=== PATIENT | male | born 2005 | race Caucasian/White ===

== ENCOUNTER 2023-04-19 21:24 | Emergency (ER) | payer OTHER ==
[~2023-04-19] VITALS: Ht 175.3 cm; Wt 56.7 kg
[2023-04-19 21:44] LABS: BASOPHILS 0.4 % (0-2); EOSINOPHILS 1.2 % (0-6); HEMATOCRIT 42.2 % (35.0-50.0); HEMOGLOBIN 14.5 g/dL (12.0-18.0); LYMPHOCYTES 22.3 % (24-44); MCH 32.5 (27-36); MCHC 34.3 g/dl (30-36); MCV 94.7 fl (81-99); MONOCYTES 6.7 % (0-12); NEUTROPHILS 69.4 % (39-80); PLATELET COUNT 303 K/uL (140-440); RBC 4.46 M/ul (4.3-5.7); RDW 13.4 (10.5-15.0)
[2023-04-19 21:58] LABS: ALBUMIN 4.4 g/dL (3.4-5.0); ALBUMIN/GLOBULIN RATIO 1.22 (1.1-2.4); ALCOHOL, MEDICAL <3 ng/dL (<3); ALKALINE PHOSPHATASE 106 U/L (46-116); ALT (SGPT) 23 U/L (14-59); ANION GAP 18.4 (7-21); AST (SGOT) 25 U/L (15-37); BILIRUBIN, TOTAL 0.5 ng/dL (0.2-1.0); BUN/CREATININE RATIO 10.93 (6.0-28.6); CALCIUM 9.1 mg/dL (8.5-10.1); CARBON DIOXIDE 23 mmol/L (21-32); CHLORIDE 101 mmol/L (98-107); CREATININE, SERUM 1.28 mg/dL (0.70-1.30); GLOMERULAR FILTRATION RATE,EST 83 mL/min (>60); POTASSIUM 3.4 mmol/L (3.5-5.1); UREA NITROGEN 14 mg/dL (7-18)
[2023-04-19 22:30] VITALS: BP 125/83
[2023-04-19 22:31] LABS: ABO B; RH NEGATIVE
[2023-04-19 22:32] LABS: ANTIBODY SCREEN NEGATIVE
== END 2023-04-19 22:42 | disposition home or self-care (01) ==
LOC: ED 21:24
PROVIDERS: Family Medicine
DX: S16.1XXA Strain of muscle, fascia and tendon at neck level, initial encounter (principal); S06.0X1A Concussion with loss of consciousness of 30 minutes or less, initial encounter; V80.018A Animal-rider injured by fall from or being thrown from other animal in noncollision accident, initial encounter
CPT/HCPCS: 36415; 70450; 72125; 80053; 85025; 86850; 86900; 86901; G0480; J1885; J7121